=== PATIENT | male | born 1975 | race Caucasian/White ===

== ENCOUNTER 2020-06-24 11:37 | Emergency (ER) | payer OTHER, SELFPAY ==
[2020-06-24 11:47] VITALS: BP 141/84; PULSE 90; RESP 18; TEMP 36.8; O2SAT 96; BMI 33.3
--- NOTE | 2020-06-24 12:01 | ED.WOUNDLAC ---
HPI - Wound/Laceration General Chief Complaint: Wound/Laceration Stated Complaint: THUMB LACERATION NON WORK RELATED Time Seen by Provider: 06/24/20 11:51 Source: patient Mode of arrival: ambulatory Limitations: no limitations History of Present Illness HPI narrative: 45 y/o male presenting with left thumb laceration due to accidental cutting it with a razor blade while cutting dry wall. He has controlled the bleeding with a bandage. He reports he is able to move his thumb and bend it at both joints. He is not sure when his last tetanus shot was. Onset (ago): hour(s) (2) Location: other Extremity Location: left: hand (proximal thumb) Place: home Context: accidental Associated symptoms: pain Treatments prior to arrival: bandage Related Data Previous Rx's Medication Instructions Recorded cephalexin [Keflex] 500 mg PO QID #20 cap 06/24/20 Allergies Allergy/AdvReac Type Severity Reaction Status Date / Time ibuprofen Allergy Swelling Verified 06/24/20 11:54 Review of Systems Review of Systems: Constitutional: No Fever, No Chills Gastrointestinal: No Nausea, No Vomiting Genitourinary: No Dysuria, No Urinary Frequency, No Hematuria Musculoskeletal: No joint pain, No Myalgias Skin: + Skin Lesions, No rash Neuro: No Weakness, No Numbness Heme/Lymph: No Bruising PMFSH Past Medical History Attestation statement: The following information was validated with the patient. Medical History (Updated 06/24/20 @ 13:27 by ANA PAULA Rivera) No known health problems Social History Social History Alcohol intake: never Smoking Status: Never smoker Use of substances other than those prescribed or required for medical reasons: No Advance Directives: No Advance Directives Information Provided: No Physical Exam Vital Signs: Vital Signs: Last Vital Signs Temp 98.3 F 06/24/20 11:47 Pulse 90 06/24/20 11:47 Resp 18 06/24/20 11:47 BP 141/84 H 06/24/20 11:47 Pulse Ox 96 06/24/20 11:47 Body Mass Index 33.3 Appearance: Alert. Oriented X3. No acute distress. HEENT: normal inspection CVS: Normal heart rate and rhythm. Pulses normal. Respiratory: No respiratory distress. Skin: Skin warm and dry. Normal skin color. Normal skin turgor. No rashes. Extremities: left proximal medial thumb with deep laceration, 3cm long, cannot visualize tendons, full ROM. Neuro: Oriented X 3. No motor deficit. No sensory deficit. Course Course Course Narrative: 45 y/o male presenting with accidental left thumb laceration - full ROM, doubt tendon involvement. Will need XR and tetanus update. Procedures Laceration Laceration 1: Site: hand Side (If applicable): left Size (cm): 3 Description: linear Depth: involves muscle layer Local Anesthetic: lidocaine 2% Amount of anesthesia used (mL): 5 Pre-repair: wound explored, irrigated extensively and deep structures intact Skin layer closed with: nylon Size (cm): 5-0 Number of sutures: 7 Technique: simple, interrupted Critical Care Time Critical Care Time Critical Care Time: No Discharge Plan Discharge Clinical Impression: Laceration Patient Disposition: Home, Self-Care Instructions: Finger Laceration (ED) Additional Instructions: Do not get wet for 24 hours. After that you can briefly wash with soap and water and then pat dry. Use bacitracin or Neosporin daily. Keep covered and clean. Take the prescribed antibiotic to help prevent infection. Follow up in 8-10 day for suture removal. Prescriptions: New cephalexin [Keflex] 500 mg capsule 500 mg PO QID Qty: 20 RF: 0
[2020-06-24] MEDS: Lidocaine HCl 2 % MPF 5 ML VIAL INFILTRATI (12:15)
--- NOTE | 2020-06-24 12:15 | XR_ITS ---
EXAMINATION: XR FINGER, LEFT CLINICAL INFORMATION: Proximal thumb laceration. COMPARISON: None TECHNIQUE: 3 views of the left thumb. FINDINGS: There is a laceration left thumb with no radiopaque foreign body seen. The joint space and the bones are unremarkable. XR/XR finger LT min 2V IMPRESSION: Soft tissue laceration left eye with no radiopaque foreign body seen. No bony abnormality.
--- NOTE | 2020-06-24 12:59 | PC.NURSE ---
ANA PAULA TORO IN WITH PT FOR SUTURING
[2020-06-24] MEDS: oxyCODONE HCl Immed Release 5 MG TABLET PO (13:36)
--- NOTE | 2020-06-24 13:49 | PC.NURSE ---
BACITRACIN,TELFA AND DSD APPLIED TO L THUMB
== END 2020-06-24 13:49 | disposition home or self-care (01) ==
PROVIDERS: Emergency Provider Emergency Medicine
DX: S61.012A Laceration without foreign body of left thumb without damage to nail, initial encounter (principal); W26.8XXA Contact with other sharp object(s), not elsewhere classified, initial encounter; Y93.H3 Activity, building and construction; Y92.019 Unspecified place in single-family (private) house as the place of occurrence of the external cause; Y99.9 Unspecified external cause status
CPT/HCPCS: 12042; 73140; 90471; 90715; 99283; 99284

== ENCOUNTER 2020-07-05 13:09 | Emergency (ER) | payer OTHER, SELFPAY ==
[2020-07-05 14:44] VITALS: BP 137/93; PULSE 75; RESP 18; TEMP 37; O2SAT 98; BMI 33.3
--- NOTE | 2020-07-05 15:06 | ED.RECABL ---
HPI - Recheck/Abnormal Lab/Rx General Chief Complaint: Wound/Laceration Stated Complaint: suture removal Time Seen by Provider: 07/05/20 15:06 Source: patient Mode of arrival: ambulatory Limitations: no limitations History of Present Illness HPI narrative: 45-year-old male presenting to the ED for suture removal he was seen here on 06/24/2020 placed on Keflex and had a sutures placed to left thumb. Reports he has no complications. Reports he is taking the antibiotics as prescribed. Also requesting COVID swab as reports his mother and close family members that he lives with also tested positive recently although denies any symptoms at this time. Denies any other symptoms complaints or concerns at this time. complaint: suture/staple removal Initial visit for: laceration Returns today for: staple/stitch removal Symptoms since prior visit: no new symptoms Associated symptoms: none Related Data Previous Rx's Medication Instructions Recorded cephalexin [Keflex] 500 mg PO QID #20 cap 06/24/20 Allergies Allergy/AdvReac Type Severity Reaction Status Date / Time ibuprofen Allergy Swelling Verified 07/05/20 14:43 Review of Systems Review of Systems: Constitutional : No Fever, No Chills, Cardiovascular : No Chest Pain, No SOB Respiratory : No Dyspnea Gastrointestinal : No abdominal pain Musculoskeletal : No Joint Swelling Skin : positive healing skin laceration, No Foreign bodies, No rash, No surrounding erythema Neuro : No Weakness, No Numbness/tingling Psych : No SI/HI/thoughts of self injury Yes all other systems are reviewed and are negative FOR[facility]LY [facility] Past Medical History Attestation statement: The following information was validated with the patient. Medical History No known health problems Social History Social History Alcohol intake: never Smoking Status: Never smoker Advance Directives: No Advance Directives Information Provided: Yes Physical Exam Vital Signs: Vital Signs: Last Vital Signs Temp 98.6 F 07/05/20 14:44 Pulse 75 07/05/20 14:44 Resp 18 07/05/20 14:44 BP 137/93 H 07/05/20 14:44 Pulse Ox 98 07/05/20 14:44 Body Mass Index 33.3 vital signs have been reviewed as normal and appeared to be correct. Blood pressure normal. Heart rate normal. Respiration rate normal. Temperature normal. Oxygen saturation normal. Appearance: Alert. Oriented X3. No acute distress. Head: Normal external exam. Normocephalic. Atraumatic. Eyes: PERRLA. EOMI. Conjunctiva and sclera normal. Eyelids normal. ENT: Pharynx normal. Uvula midline. Moist mucous membranes. Neck: Normal inspection. Neck supple. FROM. No adenopathy. Thyroid Normal. No meningeal signs. No neck mass noted. CVS: Normal heart rate and rhythm. Heart sound normal. No murmurs noted. Pulses normal throughout. Respiratory: No respiratory distress. Painless inspiration. Breath sounds normal. No wheezes/rales/rhonchi noted. Chest nontender. No accessory muscle usage noted or decreased air movement noted. Back: Full range of motion noted. Skin: Skin warm and dry. Normal skin color. Normal skin turgor. No rashes/lesions/lacerations noted. Extremities: To left hand thumb there is [address] no surrounding erythema/streaking/fluctuance or signs of infection noted. Patient has full range of motion otherwise all other Extremities exhibit normal range of motion. Extremities nontender. Neuro: Oriented X 3. No motor deficit. No sensory deficit. Reflexes normal. Course Course Course Narrative: Patient is now status post suture removal 8 sutures removed. No complications. Patient requesting COVID swab COVID swab ordered at this time. Will DC home with instructions to self isolate and to return if any new or worsening symptoms to take antibiotics as previously prescribed. Patient understands agrees the plan. MDM - Recheck/Abnormal Lab/Rx Medical Records Attestation: I reviewed the patient's medical records. Discharge Plan Discharge Clinical Impression: Visit for suture removal, Close exposure to COVID-19 virus Patient Disposition: Home, Self-Care Instructions: Stitches Removal (ED), COVID-19 (Coronavirus Disease 2019) (ED) Additional Instructions: Based on your symptoms and history we have sent a COVID-19. Although your RESULT IS PENDING at this time. RESULTS should return within 72 hours. At this time you will be contacted with either NEGATIVE OR POSITIVE results. -Please wait until we contact you for your results. At this time you will be okay for discharge. Please plan for self quarantine for up to 14 days. Do not expose yourself to others. You may not go to work. If testing does come back negative you may return to activities as long as you are no longer having any symptoms for at least 3 days. Please continue to follow cold instructions and wash your hands frequently. You may take Tylenol as directed on the bottle for pain or fever. Patient seen in the emergency department on 07/05/2020 and should be excused from work until negative test results AND until 72 hours without any symptoms AND at least 10 days have passed since symptoms first appeared or since last exposure to COVID-19 positive patient CDC Guidelines for home isolation: - Stay away from others - WEAR A MASK if you are sick AND STAY HOME - Cover your mouth and nose with a tissue when you cough or sneeze. Dispose of tissues in a lined trash can and wash your hands immediately with soap and water for at least 20 seconds. If soap and water are not available, clean hands with alcohol-based hand gantry crane operator that contains at least 60% alcohol. - Clean your hands often with soap and water for at least 20 seconds - Avoid touching your eyes, nose and mouth with unwashed hands - Do not share dishes, drinking glasses, cups, eating utensils, towels, or bedding with other people in your home. After using these items, wash them thoroughly with soap and water or put in the bakery chef. - Clean high-touch surfaces in your isolation area ( sick room and bathroom) every day; let a caregiver clean and disinfect high-touch surfaces in other areas of the home. Clean the area or item with soap and water or another detergent if it is dirty. Then, use a household disinfectant. - Limit contact with pets and animals: If you must care for a pet, wash your hands before and after interacting with them). Prescriptions: No Action cephalexin [Keflex] 500 mg capsule 500 mg PO QID Qty: 20 RF: 0 Referrals: Physician,Unknown [Primary Care Provider] - 2 days Stand Alone Forms: Work/School Release Print Language: Lao
[2020-07-05 16:03] LABS: Influenza A PCR NEGATIVE (Negative); Influenza B PCR NEGATIVE (Negative); Resp Syncy Virus RNA Qual PCR NEGATIVE (Negative); SARS COV2 PCR INHOUSE POSITIVE (Negative)
== END 2020-07-05 15:38 | disposition home or self-care (01) ==
LOC: HO.ED 15:09
PROVIDERS: Physician Assistant Medical; Emergency Provider Emergency Medicine
DX: U07.1 COVID-19 (principal); S61.412D Laceration without foreign body of left hand, subsequent encounter; X58.XXXD Exposure to other specified factors, subsequent encounter; Z48.02 Encounter for removal of sutures
CPT/HCPCS: 0241U; 36415; 99283